=== PATIENT | female | born 1945 | race Caucasian/White ===

== ENCOUNTER → 2020-07-31 07:48 | Outpatient (REF) | payer MEDICARE, OTHER, SELFPAY ==
--- NOTE | 2020-07-31 | NM_ITS ---
Lexiscan Myocardial perfusion study Indication: Chest pain, assess for coronary artery disease and ischemia Technique: The patient was brought in for a Lexiscan perfusion study on 07/31/2020 and was injected 0.4 mg of Lexiscan intravenously. Within a minute of this injection 25 mCi of sestamibi was given intravenously. Images were obtained using the SPECT gamma camera interlaced with the gating device. Images were obtained in supine position. Resting perfusion study was performed on 08/01/2020. Patient was administered 25 mCi of sestamibi intravenously at rest. Images were then obtained in supine position. Total DLP 93mGy-cm. Images were processed with the software and compared side to side in short axis, horizontal long axis and vertical long axis views. Findings: Raw acquisition was reviewed. The stress perfusion study showed no significant perfusion abnormality. Both uncorrected as well as CT attenuation corrected images were reviewed. The gated study shows normal LV systolic function with calculated LVEF of 75%. LV cavity is normal in size. The gated study shows normal wall thickening and contraction of segments. Resting study shows no significant perfusion abnormality. Gating at rest reveals normal wall motion with ejection fraction at 70%. The findings are consistent with no definite reversible or fixed perfusion defects. Impression: 1. Myocardial perfusion imaging study shows likely normal myocardial perfusion. No definitive evidence of any ischemia or infarction. 2. Gated LVEF is normal. 3. Transient ischemic dilatation not present. EKG component of the test reported separately.
--- NOTE | 2020-07-31 08:00 | CA_ITS ---
Acquisition Time: 2020-07-31 08:27:18 Total Exercise Time: 00:02:00 Test Indications: Chest Pain Medications: TOPROL XL HCTZ LISINOPRIL ATORVASTATIN PRILOSEC GABAPENTIN MYRBETRIQ Protocol: LEXISCAN Max HR: 098 BPM 67% of Pred: 145 BPM Max BP: 130/070 mmHG Max Work Load: 1.6 METS Pharmacological stress test using Lexiscan while walking on the treadmil. Tolerated well, Sx of SOB reversed with Aminophyline 75 mg IV. EKG with isolated PVC's, non-diagnostic for ischemia. Nuclear images to follow. Normotensive response to test. Test reviewed with DR. Klein Referred By: Aj Rodriguez Overread By: Neel Perla
--- NOTE | 2020-07-31 09:00 | ECG_ITS ---
Hook-up date: 2020-07-31 09:09:00 Duration: 23:46:00 Test Indications: PALPITATIONS, CAD Medications: 11206 QRS complexes 4 Ventricular ectopics which represent <1 % of total QRS comp. 5 Supraventricular ectopics which represent <1 % of total QRS comp. * Paced QRS complexs which represent % of total QRS comp. VENTRICULAR ECTOPY 4 Isolated 0 Bigeminal Cycles 0 Couplets 0 Runs 0 Beats in Runs * Beats LONGEST at * BPM at :: -- * Beats FASTEST at * BPM at :: -- SUPRAVENTRICULAR ECTOPY 5 Isolated 0 Couplets 0 Runs 0 Beats in Runs * Beats LONGEST at * BPM at :: -- * Beats FASTEST at * BPM at :: -- HEART RATES 51 MIN at 05:58:53 2020-08-01 64 AVG 84 MAX at 18:34:20 2020-07-31 LONGEST RR 1.8240 secs at 05:29:19 2020-08-01 S-T LEVELS Channel 1 - 128 mm at 09:09:00 2020-07-31 - 128 mm at 09:09:00 2020-07-31 Channel 2 - 128 mm at 09:09:00 2020-07-31 - 128 mm at 09:09:00 2020-07-31 Channel 3 - 128 mm at 02:82:81 -- - 128 mm at 02:82:81 Basic rhythm Normal sinus rhythm No long pause or profound bradycardia Frequent Sinus bradycardia , 29% of time HR < 60 bpm Rare Premature ventricular complexes No dangerous dysrhythm periods No diary submitted Referred By: Aj Rodriguez Overread By: AJ RODRIGUEZ MD
== END ==
LOC: HO.CARD 07:48
PROVIDERS: PCP Internal Medicine; Visit Provider Internal Medicine Cardiovascular Disease
DX: R07.89 Other chest pain (principal); R00.2 Palpitations; I25.10 Atherosclerotic heart disease of native coronary artery without angina pectoris; I49.3 Ventricular premature depolarization
CPT/HCPCS: 78452; 93017; 93225; 93226; A9500; J0280; J2785

== ENCOUNTER → 2021-05-13 10:46 | Outpatient (BNVA) | payer MEDICARE, OTHER, SELFPAY | PROVIDERS: PCP Internal Medicine; Referring Provider Internal Medicine; Visit Provider Internal Medicine Cardiovascular Disease | DX: I49.3 Ventricular premature depolarization (principal); I25.10 Atherosclerotic heart disease of native coronary artery without angina pectoris; I10 Essential (primary) hypertension | CPT/HCPCS: 93005; 99212 ==

== ENCOUNTER → 2022-01-05 13:43 | Outpatient (BNVA) | payer MEDICARE, OTHER, SELFPAY | PROVIDERS: PCP Internal Medicine; Visit Provider Nurse Practitioner Family | DX: R07.9 Chest pain, unspecified (principal); I77.9 Disorder of arteries and arterioles, unspecified; R09.89 Other specified symptoms and signs involving the circulatory and respiratory systems; I10 Essential (primary) hypertension; E78.5 Hyperlipidemia, unspecified; R00.2 Palpitations; I49.3 Ventricular premature depolarization | CPT/HCPCS: 93005; 99212 ==